=== PATIENT | male | born 1985 | race American Indian/Alaskan Native ===

== ENCOUNTER 2021-03-27 09:57 | Outpatient (CLI) | payer OTHER | END 2021-03-27 10:07 | disposition home or self-care (01) | LOC: SONOGRAMA 09:57 | PROVIDERS: ATTEND General Practice | DX: E83.52 Hypercalcemia (principal); B20 Human immunodeficiency virus [HIV] disease; E21.0 Primary hyperparathyroidism; N20.0 Calculus of kidney ==

== ENCOUNTER 2021-05-08 14:25 | Outpatient (CLI) | payer OTHER | END 2021-05-08 14:36 | disposition home or self-care (01) | LOC: RAD 14:25 | PROVIDERS: ATTEND Physical Medicine & Rehabilitation | DX: M18.12 Unilateral primary osteoarthritis of first carpometacarpal joint, left hand (principal) ==